=== PATIENT | female | born 1995 | race Caucasian/White ===

== ENCOUNTER 2025-01-09 23:25 | Inpatient (IN) | payer BC ==
[2025-01-10] MEDS ORDERED: METHYLERGONOVINE 0.2 MG/ML 1 ML AMP IM PRN (01:15)
[2025-01-10] MEDS ORDERED: miSOPROStoL 200 MCG TAB RECTAL PRN (01:15)
[2025-01-10] MEDS ORDERED: miSOPROStoL 200 MCG TAB PO PRN (01:15)
[2025-01-10] MEDS ORDERED: TRANEXAMIC 1,000 MG/100ML-NACL 1,000 MG in EMPTY BAG 1 BAG IV PRN (01:15)
[2025-01-10] MEDS ORDERED: CARBOPROST TROMETHAMINE 250 MCG/ML 1 ML AMP IM PRN (01:15)
[2025-01-10] MEDS ORDERED: TERBUTALINE 1 MG/ML VIAL SQ PRN (01:15)
[2025-01-10] MEDS ORDERED: OXYTOCIN 10 UNIT/ML 1 ML VIAL IM PRN (01:15)
[2025-01-10] MEDS: LACTATED RINGERS 1,000 ML IV SCH (01:15)
[2025-01-10 01:42] LABS: Basophils # (A) 0.04 10*3/uL (0.00-0.10); Basophils % (A) 0.3 %; Eosinophils # (A) 0.01 10*3/uL (0.04-0.35); Eosinophils % (A) 0.1 %; HCT 35.8 % (37.2-46.3); HGB 12.2 g/dL (12.0-15.0); Lymphocytes # (A) 2.27 10*3/uL (0.90-5.00); Lymphocytes % (A) 16.3 %; MCH 30.7 pg (27.0-32.0); MCHC 34.1 g/dL (32.0-37.0); MCV 90.2 fL (80.0-97.0); Mean Platelet Volume 9.8 fL (9.5-12.2); Monocytes # (A) 0.62 10*3/uL (0.20-1.00); Monocytes % (A) 4.5 %; Neutrophils % (A) 77.6 %; Platelet Count 318 10*3/uL (140-440); RBC 3.97 10*6/uL (4.10-5.20); RDW 13.3 % (11.5-14.5); WBC 13.91 10*3/uL (4.50-10.00)
[2025-01-10] MEDS ORDERED: SODIUM CHLORIDE 0.9% 250 ML BAG ONE (02:15)
[2025-01-10] MEDS ORDERED: fentaNYL (PF) 50 MCG/ML 5 ML AMP ONE (02:15)
[2025-01-10] MEDS ORDERED: ROPIVACAINE 5 MG/ML 30 ML VIAL ONE (02:15)
[2025-01-10 05:30] VITALS: RESP 16
--- NOTE | 2025-01-10 08:34 | P.HPOB ---
History of Present Illness H&P Date: 01/10/25 Chief Complaint: contractions Ms. Santoro is a 29 year old at 40 weeks and 4 days gestation with EDC of 01/06/2025 by LMP consistent with 9 week US who presents in labor. She did receive an epidural overnight. The has been complicated by maternal anxiety for which she takes Lexapro 10mg daily. The fetus is estimated in the 73%ile based on a 32 week growth US. She did have SROM at 730 this morning with clear fluid noted. work-up: blood type O positive, antibody screen negative, rubella immune, VDRL non-reactive, HBsAg negative, HIV negative, HCV non-reactive, gonorrhea negative, chlamydia negative, 1 hour GTT wnl, GBS negative Past Medical History Past Medical History: No Reported History History of Any Multi-Drug Resistant Organisms: None Reported Past Surgical History: No Surgical Hx Reported Past Anesthesia/Blood Transfusion Reactions: No Reported Reaction Past Psychological History: No Psychological Hx Reported Smoking Status: Current every day smoker, Current some day smoker, Never smoker Past Alcohol Use History: None Reported Past Drug Use History: None Reported Medications and Allergies Home Medications Medication Instructions Recorded Confirmed Type Aspirin 81 mg PO DAILY 01/09/25 01/09/25 History Cholecalciferol (Vitamin D3) 1 tab PO DAILY 01/09/25 01/09/25 History [Vitamin D3 (125 MCG = 5,000 IU)] Escitalopram [Lexapro] 10 mg PO DAILY 01/09/25 01/09/25 History Vit No.179/Iron/Folic 1 each PO DAILY 01/09/25 01/09/25 History [ Tablet] Allergies Allergy/AdvReac Type Severity Reaction Status Date / Time clindamycin Allergy Rash/Hives Verified 01/09/25 23:37 Exam Vital Signs Temp Pulse Resp BP Pulse Ox 01/09/25 23:36 95.7 F L 75 16 140/81 99 Intake and Output 01/09/25 01/10/25 01/10/25 22:59 06:59 14:59 Output Total 150 Balance -150 Output: Urine 150 Straight 150 Other: Weight 94.347 kg Focused physical exam is performed. This is a healthy-appearing in no apparent distress. Breathing is non-labored. Abdomen is gravid and non-tender. Cervical exam is 7/100/0. Rupture of forebag is undertaken with clear fluid noted. Extremities non-tender and non-edematous. heart tones are Category I and tocometer is graphing contractions every 2-4 minutes. Results Result Diagrams: 01/10/25 01:10 Abnormal Lab Results - Last 24 Hours (Table) 01/10/25 Range/Units 01:10 WBC 13.91 H (4.50-10.00) 10*3/uL RBC 3.97 L (4.10-5.20) 10*6/uL Hct 35.8 L (37.2-46.3) % Immature Gran # 0.17 H (0.00-0.04) 10*3/uL Neutrophils # 10.80 H (1.80-7.70) 10*3/uL Eosinophils # 0.01 L (0.04-0.35) 10*3/uL Assessment and Plan Assessment: 29 year old at 40 weeks and 4 days gestation presenting in labor Plan: Admit, clear liquid diet, patient comfortable with epidural, continuous EFM and tocometer, expectant management at this time
[2025-01-10] MEDS: OXYTOCIN 30 UNITS/500 ML NS 30 UNIT in SALINE 1 500ML.BAG IV SCH (14:01)
[2025-01-10] MEDS: LIDOCAINE 0.5% (PF) 5 MG/ML (50 ML SDV) SQ PRN (18:55)
[2025-01-10] MEDS ORDERED: LANOLIN CREAM 1 GM TUBE TOPICAL PRN (19:27)
[2025-01-10] MEDS ORDERED: diphenhydrAMINE 25 MG CAP PO PRN (19:27)
[2025-01-10] MEDS ORDERED: ZOLPIDEM 5 MG TAB PO PRN (19:27)
[2025-01-10] MEDS ORDERED: HYDROCORTISONE 2.5% RECTAL CREAM 30 GM TUBE RECTAL PRN (19:27)
[2025-01-10] MEDS ORDERED: BENZOCAINE/MENTHOL SPRAY 1 GM/SPRAY AEROSOL TOPICAL PRN (19:27)
[2025-01-10] MEDS ORDERED: SIMETHICONE 80 MG CHEWABLE PO PRN (19:27)
[2025-01-10] MEDS ORDERED: diphenhydrAMINE 50 MG CAP PO PRN (19:27)
[2025-01-10] MEDS ORDERED: diphenhydrAMINE 50 MG/ML 1 ML VIAL IVP PRN ×2 (19:27)
--- NOTE | 2025-01-10 19:27 | P.PROBDLV ---
Vaginal Delivery Note - . Vaginal Delivery Note: DATE OF SERVICE: 01/10/2025 PROCEDURE: Normal Vaginal Delivery ATTENDING: Dr. Alicja Oropeza MD ESTIMATED BLOOD LOSS: 300 mL FINDINGS: VMI, Apgars 11/25/9. Weight 8 pounds and 3 ounces (3715 grams) PROCEDURE: Ms. Santoro is a 29 year old at 40 weeks and 4 days presenting to labor and delivery in labor. For further details, please review the admitting H&P. SROM occurred at 730. The patient received epidural anesthesia per her request. Pitocin augmentation was eventually started. The patient was completely dilated at 1653. She pushed effectively with Category I to II FHTs. The head was delivered at 1843. A shoulder dystocia was encountered. The anterior shoulder was delivered with the help of McRobert's maneuver and suprapubic pressure. A viable male was delivered at 1844. The infant was placed on the maternal abdomen and bulb suctioned. Cord was clamped and cut. The infant was handed off to the pediatric team. Placenta was delivered whole with gentle cord traction at 1847. Oxytocin was started to facilitate uterine tone. Uterine fundus was found to be firm and below the umbilicus upon fundal massage. Thorough examination of the cervix, vagina, periurethral area, and perineum revealed a third degree perineal laceration. The perineum was infiltrated with lidocain and repaired in the usual fashion with 3-0 and 2-0 Vicryl. The patient is stable and allowed to begin the bonding process.
[2025-01-10] MEDS: SENNOSIDES-DOCUSATE SODIUM 1 EACH TAB PO SCH (20:24)
[2025-01-10] MEDS: ACETAMINOPHEN TAB 500 MG TAB PO PRN (20:25)
[2025-01-11] MEDS ORDERED: ACETAMINOPHEN TAB 500 MG TAB PO SCH
[2025-01-11] MEDS: IBUPROFEN 800 MG TAB PO SCH (00:41)
[2025-01-11 06:12] LABS: Basophils # (A) 0.03 10*3/uL (0.00-0.10); Basophils % (A) 0.2 %; Eosinophils # (A) 0.05 10*3/uL (0.04-0.35); Eosinophils % (A) 0.3 %; HCT 30.8 % (37.2-46.3); HGB 10.2 g/dL (12.0-15.0); Lymphocytes # (A) 2.37 10*3/uL (0.90-5.00); Lymphocytes % (A) 13.4 %; MCH 30.8 pg (27.0-32.0); MCHC 33.1 g/dL (32.0-37.0); MCV 93.1 fL (80.0-97.0); Mean Platelet Volume 10.1 fL (9.5-12.2); Monocytes # (A) 1.11 10*3/uL (0.20-1.00); Monocytes % (A) 6.3 %; Neutrophils % (A) 78.7 %; Platelet Count 295 10*3/uL (140-440); RBC 3.31 10*6/uL (4.10-5.20); RDW 13.5 % (11.5-14.5); WBC 17.66 10*3/uL (4.50-10.00)
[2025-01-11 10:47] LABS: ALT 14 U/L (4-34); AST 29 U/L (14-36); African American GFR (CKD) >90 (>60 ml/min/1.73 sqM); Albumin 2.9 g/dL (3.5-5.0); Alkaline Phosphatase 159 U/L (38-126); Anion Gap 7 mmol/L; Blood Urea Nitrogen 6 mg/dL (7-17); Calcium 9.6 mg/dL (8.4-10.2); Carbon Dioxide 25 mmol/L (22-30); Chloride 104 mmol/L (98-107); Glucose 77 mg/dL (74-99); Non-African American GFR(CKD) >90 (>60 ml/min/1.73 sqM); Potassium 4.1 mmol/L (3.5-5.1); Sodium 136 mmol/L (137-145); Total Bilirubin 0.9 mg/dL (0.2-1.3); Total Protein 5.5 g/dL (6.3-8.2)
--- NOTE | 2025-01-11 11:07 | P.PNOBGVD ---
Subjective - Subjective Principal diagnosis: s/p vaginal delivery Interval history: The patient is doing well this morning and had no acute events overnight. She has no complaints this morning. She reports minimal lochia, passing flatus, voiding without difficulty, ambulating, and eating/drinking without nausea or vomiting. She is her without difficulty. She denies chest pain, shortness of breathing, fevers, or chills overnight. She denies pain or swelling in the legs. Blood pressures have been mild-range since delivery. Pt denies VYAS, visual changes, RUQ pain. Patient reports: Reports appetite normal, Reports voiding normally, Reports pain well controlled, Reports ambulating normally [place]: doing well, nursing well Objective - Latest Vital Signs Latest vital signs: Vital Signs Temp Pulse Resp BP Pulse Ox 01/11/25 08:00 98.4 F 84 16 139/88 01/11/25 00:00 97.6 F 91 16 147/79 95 01/10/25 21:11 83 16 142/75 01/10/25 20:56 81 16 142/78 01/10/25 20:41 83 16 154/87 01/10/25 20:26 86 16 146/67 01/10/25 20:11 82 16 148/67 01/10/25 19:56 82 16 134/73 01/10/25 19:41 78 16 138/83 01/10/25 19:26 97.6 F 85 16 152/78 01/10/25 19:11 85 16 148/78 Intake and Output 01/10/25 01/11/25 01/11/25 22:59 06:59 14:59 Intake Total 176.533 Output Total 550 Balance -373.467 Intake: Intake, IV Titration 176.533 Amount Oxytocin 30 Units/500 ml 176.533 Ns 30 unit In Saline 1 500ml.bag @ Per Protocol IV .Q0M [facility] Rx#:[id number] Output: Output, Quantitative 550 Blood Loss Other: # Voids 1 - Exam Extremities: Present: normal Abdomen: Present: normal appearance, soft Uterus: Present: normal, firm - Labs Labs: Abnormal Lab Results - Last 24 Hours (Table) 01/11/25 01/11/25 Range/Units 04:57 09:47 WBC 17.66 H (4.50-10.00) 10*3/uL RBC 3.31 L (4.10-5.20) 10*6/uL Hgb 10.2 L (12.0-15.0) g/dL Hct 30.8 L (37.2-46.3) % Immature Gran # 0.20 H (0.00-0.04) 10*3/uL Neutrophils # 13.90 H (1.80-7.70) 10*3/uL Monocytes # 1.11 H (0.20-1.00) 10*3/uL Sodium 136 L (137-145) mmol/L BUN 6 L (7-17) mg/dL Alkaline Phosphatase 159 H (38-126) U/L Total Protein 5.5 L (6.3-8.2) g/dL Albumin 2.9 L (3.5-5.0) g/dL Assessment and Plan Assessment: 29 year old now PPD#1 s/p vacuum-assisted vaginal delivery complicated by third degree perineal laceration Plan: 1. . Patient doing well , Hgb stable. 2. Gestational HTN. Check PIH labs this AM. Continue to monitor. 3. Viable male infant. Doing well at bedside, s/p circumcision. Dispo: Anticipate discharge home this PM if BPs stable <150/90
[2025-01-11] MEDS: NIFEdipine XL 30 MG TAB.ER.24 PO STA (15:36)
[2025-01-12] MEDS: NIFEdipine XL 30 MG TAB.ER.24 PO SCH (08:26)
[2025-01-12 08:38] VITALS: BP 144/95; PULSE 96; TEMP 98
== END 2025-01-12 14:00 | disposition home or self-care (01) | DRG 768 ==
LOC: FBPOP 23:25 → 4FBP 01-10 01:07
PROVIDERS: ADMIT Obstetrics & Gynecology; ATTEND Obstetrics & Gynecology
PROC: 10D07Z6 Extraction of Products of Conception, Vacuum, Via Natural or Artificial Opening (ICD-10-PCS; principal; 2025-01-10)
PROC: 0DQR0ZZ Repair Anal Sphincter, Open Approach (ICD-10-PCS; principal; 2025-01-10)
DX: O48.0 Post-term pregnancy (principal); Z37.0 Single live birth; O70.20 Third degree perineal laceration during delivery, unspecified; F17.200 Nicotine dependence, unspecified, uncomplicated; O13.4 Gestational [pregnancy-induced] hypertension without significant proteinuria, complicating childbirth; O99.343 Other mental disorders complicating pregnancy, third trimester; O99.344 Other mental disorders complicating childbirth; O99.334 Smoking (tobacco) complicating childbirth; O66.0 Obstructed labor due to shoulder dystocia; F41.9 Anxiety disorder, unspecified; Z3A.40 40 weeks gestation of pregnancy; Z79.82 Long term (current) use of aspirin; Z79.899 Other long term (current) drug therapy
CPT/HCPCS: 59025; 80053; 84112; 85025; 86850; 86900; 86901; 99213

== ENCOUNTER 2025-01-15 20:58 | Outpatient (CLI) | payer BC ==
[2025-01-15 21:49] LABS: Basophils # (A) 0.05 10*3/uL (0.00-0.10); Basophils % (A) 0.5 %; Eosinophils # (A) 0.23 10*3/uL (0.04-0.35); Eosinophils % (A) 2.2 %; HGB 10.8 g/dL (12.0-15.0); Lymphocytes # (A) 2.85 10*3/uL (0.90-5.00); Lymphocytes % (A) 27.1 %; MCH 31.4 pg (27.0-32.0); MCHC 33.8 g/dL (32.0-37.0); Mean Platelet Volume 8.9 fL (9.5-12.2); Monocytes % (A) 5.7 %; Neutrophils # (A) 6.54 10*3/uL (1.80-7.70); Neutrophils % (A) 62.2 %; Platelet Count 431 10*3/uL (140-440); RBC 3.44 10*6/uL (4.10-5.20); RDW 13.2 % (11.5-14.5); WBC 10.51 10*3/uL (4.50-10.00)
[2025-01-15 22:16] LABS: ALT 33 U/L (4-34); African American GFR (CKD) >90 (>60 ml/min/1.73 sqM); Blood Urea Nitrogen 13 mg/dL (7-17); Non-African American GFR(CKD) >90 (>60 ml/min/1.73 sqM)
[2025-01-15 23:05] LABS: AST 51 U/L (14-36); LDH 411 U/L (120-246); Uric Acid 5.5 mg/dL (3.7-7.4)
[2025-01-15 23:40] VITALS: BP 144/88; PULSE 85; RESP 16; TEMP 97.2
--- NOTE | 2025-02-08 09:40 | P.MSEPDOC ---
Presenting Problems - Arrival Data Date of Arrival on Unit: 01/15/25 Time of Arrival on Unit: 20:58 Mode of Transport: Ambulatory - Complaint OB-Reason for Admission/Chief Complaint: Elevated Blood Pressure Medical History - Gestational Age Gestational Age by MARYAM (wks/days): 40 Weeks and 5 Days Review of Systems - Review of Systems Constitutional: No problems Breast: No problems ENT: No problems Cardiovascular: No problems Respiratory: No problems Gastrointestinal: No problems Genitourinary: No problems Musculoskeletal: No problems Neurological: No problems Skin: No problems Vital Signs - Temperature Temperature: 97.2 F Temperature Source: Temporal Artery Scan - Pulse Pulse Oximetery Pulse Rate: 85 Pulse Assessment Method: Pulse Oximetry - Respirations Respiratory Rate: 16 Oxygen Delivery Method: Room Air O2 Sat by Pulse Oximetry: 96 - Blood Pressure Right Arm Blood Pressure: 144/88 Blood Pressure Mean: 106 Blood Pressure Source: Automatic Cuff Physician Notification - Physician Notified Physician Notified Date: 01/15/25 Physician Notified Time: 23:10 Physician: Lizzy Flores New Order Received: Yes - Notification Comment Comment: Dr. Flores called with report. Report given on pt's BPs consistently 140/90s (first BP 144/88 and last BP 141/89). Pt has no symptoms, no clonus, 2+ reflexes, and 1+ edema in her ankles. Labs show Plts, ALT, BUN, and Uric acid WNL but AST and LDH are elevated. Pt has an appointment with Dr. Oropeza tomorrow. Orders to discharge pt home with instructions on s/s and to continue taking her procardia as prescribed. Maternal Triage Index - Maternal Triage Index Presenting for scheduled procedure w/no complaint: No - Stat/Priority 1 Stat Priority 1: No - Urgent/Priority 2 Urgent Priority 2: Yes Provider Notified: Lizzy Flores Provider Notified Time: 23:10 Criteria Met for Priority 2: 5 days post vaginal delivery, elevated BPs at d elivery and elevated at home. Initial BP 144/88 Disposition - Disposition OB Disposition: Discharge to home Discharge Date: 01/15/25 Discharge Time: 23:25 I agree with the RN Medical Screening Exam: Yes Case reviewed; plan agreed upon as documented in EMR&OBIX.: Yes Diagnosis: RELATED CONDITIONS, UNSPECIFIED, THIRD TRIMESTER
== END 2025-01-15 23:25 | disposition home or self-care (01) ==
LOC: FBPOP 20:58
PROVIDERS: ATTEND Obstetrics & Gynecology Obstetrics
DX: O26.893 Other specified pregnancy related conditions, third trimester (principal); R03.0 Elevated blood-pressure reading, without diagnosis of hypertension; Z3A.40 40 weeks gestation of pregnancy; Z88.1 Allergy status to other antibiotic agents
CPT/HCPCS: 82565; 83615; 84450; 84460; 84520; 84550; 85025; 99215